=== PATIENT | male | born 1960 | race African-American/Black ===

== ENCOUNTER 2017-01-08 20:17 | Inpatient (IN) ==
[2017-01-08 21:14] LABS: BASO% 0.3 % (0.0-0.8); EOS# 0.05 X1000 (0.0-0.7); EOS% 0.7 % (0.0-10.0); HEMOGLOBIN 14.1 g/dL (14.0-18.0); IMM GRAN# 0.01 X1000 (0.0-0.04); IMM GRAN% 0.1 % (0.0-0.5); LYMPH# 0.58 X1000 (1.2-3.4); LYMPH% 8.6 % (20.5-51.1); MANUAL DIFF NEEDED? NO; MCH 31.1 PG (27-31); MCHC 37.1 g/dL (33-37); MCV 83.9 FL (81-99); MONO% 7.4 % (1.7-9.3); NEUT% 82.9 % (42.2-75.2); PLT 149 X1000 (130-400); RBC 4.53 XMIL (4.7-6.1)
[2017-01-08] MEDS ORDERED: ZOFRAN IV ONE (21:14)
[2017-01-08] MEDS ORDERED: M.V.I.-12 10 ML, FOLIC ACID 1 MG, MAGNESIUM SULFATE 1 GM, THIAMINE 100 MG in NS 1,000 ML IV ONE (21:14)
[2017-01-08 22:11] LABS: AGAP 21; ALBUMIN 4.8 g/dL (3.5-5.0); ALKALINE PHOSPHATASE 117 U/L (32-122); AMYLASE 72 U/L (20-200); BUN 6 mg/dL (8-22); CALCIUM 9.1 mg/dL (8.8-10.2); CHLORIDE 81 mmol/L (98-107); COSMO 241; GOT 290 U/L (10-34); GPT 124 U/L (10-44); LIPASE 146 U/L (13-60); POTASSIUM 3.9 mmol/L (3.5-5.1); SODIUM 121 mmol/L (136-145); TCO2 18 mmol/L (25-35); TOTAL PROTEIN 9.2 g/dL (6.3-8.3)
[2017-01-08] MEDS ORDERED: PROTONIX IV ONE (22:24)
[2017-01-08] MEDS ORDERED: SODIUM CHLORIDE 0.9% INJ ONE (22:24)
--- NOTE | 2017-01-08 23:42 | PROVIDER DOCUMENTATION ---
This chart was entered by Lavonne Bustamante Scribe, acting as scribe for Humza Ramos MD. HPI-Abdominal Pain/GI Problem - General Chief Complaint: Abdominal Pain Stated Complaint: abdominal pain Time Seen by Provider: 01/08/17 20:54 Source: patient Allergies/Adverse Reactions: Patient Allergies Allergy/AdvReac Type Severity Reaction Status Date / Time sucralfate [From Carafate] AdvReac NAUSEA/VOMI Verified 10/25/15 12:33 TING Home Medications: Home Medication List Medication Instructions Recorded Confirmed Last Taken Type Gabapentin [Neurontin] 100 mg PO BID 11/09/15 11/09/15 1 Day Ago History Multivit,Th Iron,Other Min 1 each PO DAILY 11/09/15 11/09/15 1 Day Ago History [Complete Multivitamin] Pantoprazole [Protonix] 40 mg PO DAILY@0700 11/09/15 11/09/15 1 Day Ago History Thiamine [Vitamin B-1] 100 mg PO DAILY 11/09/15 11/09/15 1 Day Ago History Chlordiazepoxide [Librium] 25 mg PO Q8H #6 capsule 11/10/15 Unknown Rx - History of Present Illness-ABD Nature of Presenting Problems: 56 year old M presents to the ED with a cc of nausea and vomiting with the feeling of "knotting up" in stomach with an onset of this morning. PT also c/o numbness in left hand and legs. Pt states that he has been drinking today to get rid of the nausea feeling but states that he drinks daily, 5-6 per day. Abdominal Pain Onset Location: reports: generalized abdomen Pain Radiation: reports: no radiation Quality of Pain: reports: cramping Severity in ED: reports: mild Onset/Duration: reports: this morning Timing: reports: still present Review of Systems - Adult - REVIEW OF SYSTEMS - ADULT Constitutional: denies: chills, fever Eyes: reports: no symptoms reported Ears, Nose, Mouth & Throat: reports: no symptoms reported Cardiovascular: denies: chest pain, palpitations Respiratory: denies: cough, shortness of breath Gastrointestinal: reports: abdominal pain, nausea, vomiting Genitourinary: reports: hesitency. denies: dysuria, hematuria Musculoskeletal: denies: bone pain, muscle aches, muscle weakness Integumentary: reports: no symptoms reported Neurological: reports: numbness. denies: dizziness/vertigo, headache/migraines Psychiatric: reports: no symptoms reported Endocrine: reports: no symptoms reported Hematologic/Lymphatic: reports: no symptoms reported Allergic/Immunologic: reports: no symptoms reported All Other Systems: Reviewed and Negative Past History - Adult - PAST MEDICAL HISTORY-ADULT Review of Records: reports: Nursing Assessment Review, Medications Reviewed Major Childhood Illnesses: reports: denies history Cardiovascular: reports: HTN Respiratory: reports: denies history Gastrointestinal: reports: denies history Obstetrical/Gynecological: reports: denies history Genitourinary: reports: denies history Musculoskeletal: reports: denies history Neurological: reports: CVA, Parkinson's, Seizures/Epilepsy Psychiatric: reports: anxiety Endocrine/Immune: reports: denies history Other Conditions: reports: denies history - PRIOR SURGERIES/PROCEDURES Surgical/Procedure History: reports: colonoscopy, cholecystectomy - PRIOR HOSPITALIZATIONS Prior Hospitalizations: reports: for other non-related - IMMUNIZATION STATUS Childhood Immunizations: See Nurse Assessment Flu Vaccine: See Nurse Assessment - FAMILY HISTORY Family History: reviewed, not pertinent - SOCIAL HISTORY Smoking: non-smoker Substance Use: none/never Alcohol Use Frequency: every day Living Situation: family Physical Exam-General - PHYSICAL EXAM-ADULT Initial Vital Signs Reviewed: Yes - CONSTITUTIONAL General Appearance: appears well, alert, no apparent distress - RESPIRATORY Respiratory: chest non-tender, lungs clear, normal breath sounds - CARDIOVASCULAR Cardiovascular: normal peripheral pulses, regular rate, rhythm, no edema - GASTROINTESTINAL (ABDOMEN) Abdominal Exam: normal bowel sounds, non tender, soft - MUSCULOSKELETAL Back Exam: normal inspection, no CVA tenderness, no vertebral tenderness Extremity: normal inspection - SKIN Integumentary: normal color, normal turgor, warm/dry - PSYCHIATRIC Psych/Mental Status: normal mood/affect, normal thought content, normal thought process, oriented x 3 Progress - PLAN OF CARE/RESULTS Progress/Plan/Lab Results: Vital Signs - 8 hr 01/08/17 20:19 Temperature 98.8 F Pulse Rate 90 Respiratory Rate 18 Blood Pressure 171/105 O2 Sat by Pulse Oximetry 98 Orders Category Date Time Status Saline Loc DIRECTED Care 01/08/17 20:54 Active NPO Diet 01/08/17 20:54 Active AMYLASE [CHEM] Stat Lab 01/08/17 21:00 Received CBC WITH ELECTRONIC DIFF [HEME] Stat Lab 01/08/17 21:00 Results COMPREHENSIVE METABOLIC PANEL [CHEM] Stat Lab 01/08/17 21:00 Received LIPASE [CHEM] Stat Lab 01/08/17 21:[address] W/POSS RFLX CULT [URINALYSIS] Stat Lab 01/08/17 21:09 Ordered Result Diagrams: 01/08/17 21:00 01/08/17 21:00 - CONSULTS/PCP/HOSPITALIST Notification #1 *Consult/PCP/Hospitalist*: Dr. Encarnacion(hospitalist) Time Discussed: 22:39 Reason/Comments: consult for admission Consult Disposition: Admit Departure - Departure Date of Disposition Decision: 01/08/17 Time of Disposition Decision: 23:41 DIAGNOSIS: ETOH abuse, Hyponatremia Pancreatitis Qualifiers: Chronicity: acute Pancreatitis type: alcohol induced Acute pancreatitis complication: no infection or necrosis Qualified Code(s): K85.20 - Alcohol induced acute pancreatitis without necrosis or infection Gastritis Qualifiers: Gastritis type: alcoholic Chronicity: acute Gastritis bleeding: without bleeding Qualified Code(s): K29.20 - Alcoholic gastritis without bleeding Disposition: ADMITTED INPATIENT 09 Certified Medical Emergency: Emergent Condition: Good - Critical Care Note This patient required my direct & personal management of CC.: No Attestation - Physician/ NITISH Attestation Patient care was provided by Advanced Practice Provider:: No The physician spent face to face time with patient:: Yes Advanced Practice Provider documentation review:: Supervising physician onsite and consulted in the evaluation and care of this patient. The physician did have a face to face encounter with the patient. This chart was documented by the indicated scribe, (Lavonne Bustamante Scribe) and accurately reflects the services I performed and decisions made by me, Humza Ramos MD, as attested by the provider's signature.
[2017-01-09] MEDS ORDERED: ZOFRAN IV ONE (03:04)
[2017-01-09 04:40] LABS: BILIRUBIN URINE NEGATIVE (NEGATIVE); BLOOD URINE 1+ (NEGATIVE); CLARITY CLEAR (CLEAR); COLOR YELLOW; GLUCOSE URINE NEGATIVE (NEGATIVE); LEUKOCYTES URINE NEGATIVE (NEGATIVE); NITRITE URINE NEGATIVE (NEGATIVE); PROTEIN URINE 1+(30 mg/dL) mg/dL (NEGATIVE); UROBILINOGEN URINE NORMAL
[2017-01-09 04:46] LABS: URINE CULTURE PL NEEDED? YES; URINE EPITHELIAL CELLS <10 /HPF (<10); URINE RBC <10 /HPF (<10); URINE SOURCE CLEAN CATCH; URINE WBC <10 /HPF (<10)
[2017-01-09] MEDS ORDERED: ATIVAN IM ONE (07:02)
[2017-01-09 09:51] LABS: MANUAL DIFF NEEDED? NO
[2017-01-09 09:59] LABS: BASO% 0.4 % (0.0-0.8); EOS# 0.11 X1000 (0.0-0.7); EOS% 2.1 % (0.0-10.0); HEMATOCRIT 36.5 % (42.0-52.0); LYMPH# 0.62 X1000 (1.2-3.4); LYMPH% 11.6 % (20.5-51.1); MCH 30.3 PG (27-31); MCHC 35.6 g/dL (33-37); MCV 85.1 FL (81-99); MONO# 0.47 X1000 (0.11-0.59); MONO% 8.8 % (1.7-9.3); MPV 8.6 FL (7.4-10.4); NEUT% 77.1 % (42.2-75.2); PLT 135 X1000 (130-400); RBC 4.29 XMIL (4.7-6.1)
[2017-01-09] MEDS: NS 1,000 ML IV SCH ×2 (10:07→19:38)
[2017-01-09] MEDS ORDERED: ZOFRAN IV PRN (10:15)
[2017-01-09 10:26] LABS: AGAP 15; ALBUMIN 4.6 g/dL (3.5-5.0); ALKALINE PHOSPHATASE 104 U/L (32-122); BUN 7 mg/dL (8-22); CALCIUM 9.2 mg/dL (8.8-10.2); CHLORIDE 88 mmol/L (98-107); COSMO 249; GOT 223 U/L (10-34); GPT 108 U/L (10-44); POTASSIUM 3.8 mmol/L (3.5-5.1); SODIUM 125 mmol/L (136-145); TCO2 22 mmol/L (25-35); TOTAL PROTEIN 8.5 g/dL (6.3-8.3)
--- NOTE | 2017-01-09 11:06 | HISTORY AND PHYSICAL ---
PRIMARY CARE PHYSICIAN: Dr. Bond. CHIEF COMPLAINT: Abdominal pain, nausea, vomiting and diarrhea that began yesterday. HISTORY OF PRESENTING ILLNESS: This is a 56-year-old, male, who presents to [facility] ER with complaints of generalized abdominal pain, nausea, vomiting, and diarrhea since yesterday. States that he drinks 5-6 beers every day and has a history of chronic ETOH abuse. On arrival, he had a sodium of 121, chloride of 81. Liver enzymes were elevated with a total bilirubin of 1.50. AST 290, ALT 124, lipase of 146. A blood pressure on arrival was 171/105. So he was admitted to the medical unit for further evaluation and treatment. PAST MEDICAL HISTORY: Chronic ETOH abuse. Peptic ulcer disease. Chronic pancreatitis, GERD and hypertension. PAST SURGICAL HISTORY: Cholecystectomy. FAMILY HISTORY: Noncontributory. SOCIAL HISTORY: Currently lives with family. Denies any tobacco use. Drinks 5 -6 beers daily and denies any illicit drugs. ALLERGIES: Sucralfate. HOME MEDICATIONS: Will need to be verified. At this time, he is n.p.o., but we will verify the dosages. LABORATORY DATA: White blood cell count of 6.72, hemoglobin 14.1, hematocrit 38 , platelets 149. Sodium of 121, potassium 3.9, chloride 81, CO2 of 18. BUN of 6, creatinine 0.7 , glucose 87, magnesium 1.7. Total bilirubin of 1.50. AST of 290, ALT 124, alkaline phosphatase of 117. Amylase of 72, lipase 146. Urinalysis was negative except for 3+ bacteria. Urine culture is pending. REVIEW OF SYSTEMS: He denied any fever, chills, blurred vision, dizziness, chest pain, coughing, shortness of breath. He is positive for generalized abdominal pain, nausea, vomiting and diarrhea. Denied any constipation, or burning or hurting with urination. PHYSICAL EXAMINATION: VITAL SIGNS: On arrival, he had a temperature of 98.8, a pulse of 90, respirations 18, blood pressure 171/105. Currently, his blood pressure is down to 157/81. GENERAL: This is a 56-year-old, male, who is lying in the bed , and answers questions appropriately. HEENT: Normocephalic and atraumatic. Pupils are equal, round, reactive to light. Extraocular movements are intact. The oropharynx and nares are clear. NECK: Supple. LUNGS: Clear to auscultation bilaterally with equal lung expansion and chest wall movement. HEART: With regular rate and rhythm. No murmurs, rubs, or gallops. ABDOMEN: Soft, nontender, nondistended. Bowel sounds are present x4 quadrants. EXTREMITIES: There is no clubbing, cyanosis, or edema. NEUROLOGICAL: The cranial nerves 2-12 are grossly intact. ASSESSMENT: 1. Mild pancreatitis. 2. Hyponatremia. 3. Elevated liver function tests. 4. Hypertension. 5. Ethanol abuse. PLAN: He has been admitted to the medical unit at [place]. Held n.p.o., placed on normal saline at 100 mL an hour. Will recheck a CBC and a CMP today. If his sodium is improved and his nausea, vomiting is improved, we will advance him to some clear liquids and see how he tolerates. We will give Zofran 4 mg IV q.4 hours p.r.n. Discussed ETOH cessation with this patient who verbalizes understanding. Dictated by SONI Carmona for Cody Encarnacion MD cc: SONI Carmona MD Dr. Thomas pt examined, seen face to face, has pancreatitis, mild tenderness in epigastrum on exam, pt has mild hyponatremia, likely due to beer potomonia, will hydrate and advance diet slowly, otherwise agree with above plan APENOT MTDD
[2017-01-09] MEDS: ATIVAN IV PRN (20:27)
[2017-01-10] MEDS: ATIVAN IV PRN (01:40)
[2017-01-10 04:58] VITALS: BP 171/91
[2017-01-10] MEDS: NS 1,000 ML IV SCH (05:11)
[2017-01-10 06:23] LABS: HEMATOCRIT 35.9 % (42.0-52.0); HEMOGLOBIN 12.6 g/dL (14.0-18.0); MCH 30.1 PG (27-31); MCHC 35.1 g/dL (33-37); MCV 85.9 FL (81-99); MPV 9.3 FL (7.4-10.4); RBC 4.18 XMIL (4.7-6.1)
[2017-01-10 06:37] LABS: AGAP 16; ALBUMIN 4.6 g/dL (3.5-5.0); ALKALINE PHOSPHATASE 103 U/L (32-122); BUN 7 mg/dL (8-22); CALCIUM 8.9 mg/dL (8.8-10.2); CHLORIDE 91 mmol/L (98-107); COSMO 256; GOT 209 U/L (10-34); GPT 101 U/L (10-44); POTASSIUM 3.2 mmol/L (3.5-5.1); SODIUM 129 mmol/L (136-145); TCO2 22 mmol/L (25-35); TOTAL PROTEIN 8.3 g/dL (6.3-8.3)
[2017-01-10] MEDS ORDERED: HALDOL IM PRN (07:03)
[2017-01-11 12:09] LABS: HEPATITIS PROFILE ACUTE SEE COMMENTS
--- NOTE | 2017-02-07 18:21 | DISCHARGE SUMMARY ---
ADMISSION DATE: 01/09/2017 DISCHARGE DATE: 01/09/2017 HOSPITAL COURSE: Briefly, this is a 56-year-old male who presented with abdominal pain, nausea, vomiting. He was admitted. Placed on IV fluids. [place] to have acute pancreatitis. ETOH cessation. I think the patient ended up leaving AMA. He did not want nursing care, and he wanted to leave the hospital. So he left the following day before being evaluated. The patient was still hyponatremic with a sodium 129, potassium 3.9, total bilirubin initially 1.5. It was 2.2 at discharge. Initial lipase 146. ASSESSMENT AND PLAN: Patient left against medical advice with not completing treatment. cc: MD Indra Jernigan MD
== END 2017-01-10 08:45 | disposition left against medical advice (07) ==
LOC: P.ED 20:17 → P.MEDSURG 22:44
PROVIDERS: ATTEND Internal Medicine

== ENCOUNTER 2017-01-10 22:43 | Inpatient (IN) ==
[2017-01-11] MEDS ORDERED: ATIVAN IM ONE (00:10)
[2017-01-11] MEDS ORDERED: ATIVAN ONE (00:11)
[2017-01-11 00:31] LABS: MANUAL DIFF NEEDED? NO
[2017-01-11 00:36] LABS: BASO% 0.3 % (0.0-0.8); EOS# 0.06 X1000 (0.0-0.7); EOS% 0.9 % (0.0-10.0); HEMATOCRIT 35.4 % (42.0-52.0); HEMOGLOBIN 12.8 g/dL (14.0-18.0); LYMPH# 0.54 X1000 (1.2-3.4); LYMPH% 8.1 % (20.5-51.1); MCH 31.4 PG (27-31); MCHC 36.2 g/dL (33-37); MCV 86.8 FL (81-99); MONO# 0.51 X1000 (0.11-0.59); MONO% 7.6 % (1.7-9.3); MPV 9.3 FL (7.4-10.4); NEUT% 83.1 % (42.2-75.2); PLT 153 X1000 (130-400); RBC 4.08 XMIL (4.7-6.1)
[2017-01-11 00:59] LABS: AGAP 23; ALBUMIN 4.6 g/dL (3.5-5.0); ALKALINE PHOSPHATASE 93 U/L (32-122); BUN 13 mg/dL (8-22); CALCIUM 9.4 mg/dL (8.8-10.2); CHLORIDE 91 mmol/L (98-107); COSMO 267; GOT 234 U/L (10-34); GPT 117 U/L (10-44); POTASSIUM 3.7 mmol/L (3.5-5.1); SODIUM 134 mmol/L (136-145); TCO2 20 mmol/L (25-35); TOTAL BILIRUBIN 2.24 mg/dL (0.20-1.00); TOTAL PROTEIN 8.7 g/dL (6.3-8.3)
[2017-01-11 01:06] LABS: FREE T4 1.58 ng/dL (0.93-1.70)
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
[2017-01-11] MEDS ORDERED: M.V.I.-12 10 ML, FOLIC ACID 1 MG, MAGNESIUM SULFATE 1 GM, THIAMINE 100 MG in NS 1,000 ML IV ONE (02:09)
[2017-01-11] MEDS ORDERED: ATIVAN IV PRN ×2 (02:09→08:40)
[2017-01-11] MEDS ORDERED: ZOFRAN IV PRN (04:26)
[2017-01-11] MEDS ORDERED: STERILE WATER INJ. INJ ONE (04:51)
[2017-01-11] MEDS ORDERED: GEODON IM ONE (04:51)
[2017-01-11] MEDS: NS 1,000 ML IV SCH ×2 (05:50→14:26)
[2017-01-11 06:27] LABS: URINE CULTURE NEEDED? NO; URINE MICRO REVIEW NEEDED? NO; URINE SOURCE CATH
[2017-01-11 06:35] LABS: BILIRUBIN URINE SMALL (NEGATIVE); BLOOD URINE TRACE (NEGATIVE); COLOR ORANGE; GLUCOSE URINE NEGATIVE (NEGATIVE); LEUKOCYTES URINE NEGATIVE (NEGATIVE); NITRITE URINE NEGATIVE (NEGATIVE); PROTEIN URINE 200 mg/dL (NEGATIVE); SP GRAVITY URINE 1.022; TURBIDITY URINE CLEAR (CLEAR); UROBILINOGEN URINE 6 mg/dL (NORMAL)
[2017-01-11 06:36] LABS: UR EPITHELIAL CELLS <10 /HPF (<10); URINE BACTERIA NEGATIVE /HPF; URINE WBC <10 /HPF (<10)
[2017-01-11 06:47] LABS: UR AMPHETAMINES QUAL NONE DETECTED (NONE DETECT); UR BARBITUATES QUAL NONE DETECTED (NONE DETECT); UR BENZODIAZEPIN QUAL NONE DETECTED (NONE DETECT); UR CANNABINOIDS QUAL NONE DETECTED (NONE DETECT); UR COCAINE QUAL NONE DETECTED (NONE DETECT); UR METHADONE QUAL NONE DETECTED (NONE DETECT); UR OPIATES QUAL NONE DETECTED (NONE DETECT); UR OXYCODONE QUAL NONE DETECTED (NONE DETECT); UR PCP QUAL NONE DETECTED (NONE DETECT)
--- NOTE | 2017-01-11 06:47 | HISTORY AND PHYSICAL ---
PRIMARY CARE PHYSICIAN: Unknown. CHIEF COMPLAINT: Alcohol withdrawal. HISTORY OF PRESENTING ILLNESS: A 56-year-old male with a history of CVA, hypertension, seizures and alcohol abuse had presented to our emergency department due to altered mental status. He was somewhat agitated and really not much history could be obtained from him. His toxicology screen showed that his alcohol level was 0 and was suspected that he was having withdrawal symptoms. He was evaluated in the ER, and due to his severe agitation it was thought that he would need admission for further management. At the time of my examination, he had denied any headache, fever, chills, or chest pain. He was not really cooperative with much of history gathering or exam. PAST MEDICAL HISTORY: Includes CVA, hypertension and seizures. PAST SURGICAL HISTORY: Cholecystectomy. ALLERGIES: No known drug allergies. CURRENT MEDICATIONS: As per medication reconciliation sheet. SOCIAL HISTORY: Denies any history of smoking. History of drinking beer mostly. Denies any history of illicit drug use. FAMILY HISTORY: No history of coronary disease. REVIEW OF SYSTEMS: Limited due to his altered mental status. PHYSICAL EXAMINATION: GENERAL: Mildly confused and agitated male. He is without any respiratory distress. VITAL SIGNS: Temperature 99.6 degrees, pulse 105, respirations 14 and blood pressure 156/94. HEENT: Atraumatic, normocephalic. PERRLA. NECK: No masses. CHEST: Clear to auscultation. CARDIOVASCULAR: Regular rate and rhythm. ABDOMEN: Soft. Positive bowel sounds. EXTREMITIES: No edema. NEUROLOGIC: He is awake and agitated. : No bladder distention. SKIN: Warm. LABORATORIES AND STUDIES: WBC 6.70, hemoglobin 12.8, hematocrit 35.4 and platelets 153,000. Sodium 134, potassium 3.7, chloride 91, CO2 20. BUN is 13, creatinine is 1.2, glucose is 73. AST 234, ALT 117 and bilirubin 0.24. ASSESSMENT: A 56-year-old male with a history of alcohol abuse, hypertension, seizures and CVA who had presented to the emergency department due to mental status changes. It was suspected that he was having alcohol withdrawal symptoms. Subsequently, he will need admission for further management. 1. Alcohol withdrawal symptoms. 2. Suspected alcoholic hepatitis. 3. Abnormal liver function tests. 4. Hypertension. PLAN: 1. We will admit patient to ICU. 2. We will continue with supportive treatment, IV fluids and antiemetics. 3. Place patient on Ativan p.r.n. agitation and withdrawal. 4. Put patient on seizure precautions. 5. We will check an abdominal ultrasound. 6. We will monitor blood pressure closely. Resume antihypertensive agent. 7. Put patient on DVT prophylaxis and SCD. 8. We will continue to follow and reassess. cc: Lavon Leonard MD
[2017-01-11] MEDS ORDERED: THIAMINE 100 MG in NS 50 ML IV SCH (09:00)
[2017-01-11] MEDS ORDERED: LIBRIUM PO SCH (10:45)
[2017-01-11 20:29] VITALS: BP 167/84
--- NOTE | 2017-01-12 17:36 | DISCHARGE SUMMARY ---
ADMISSION DATE: 01/11/2017 DISCHARGE DATE: 01/11/2017 ADMISSION DIAGNOSES: 1. Alcohol withdrawal symptoms. 2. Suspected alcoholic hepatitis. 3. Abnormal liver function tests. 4. Hypertension. DISCHARGE DIAGNOSES: 1. Alcohol withdrawal symptoms. 2. Alcoholic hepatitis. 3. Abnormal liver function tests. 4. Hypertension. 5. Left against medical advice. HOSPITAL COURSE: Mr. Giovanny Walden is a 56-year-old male with a history of CVA, hypertension, seizures, alcohol abuse, who presented to the ER with altered mental status. He was agitated and was a poor historian. His toxicology screening showed his alcohol level was zero and he was suspected to be having withdrawal symptoms. He was evaluated in the ER. Due to the severe agitation, it was thought that he would need to be admitted for further DT management. At the time of Dr. Leonard' examination, the patient denied any headache, fever, chills, or chest pain but otherwise was uncooperative with history gathering. Throughout the day Mr. Walden threatened leaving all day long, attempted to get his son to take him home, attempted to get his to take him home. Apparently he states that he is not ambulatory, that he has been using a wheelchair to get around. I believe eventually around 10:30 at night last night, on 2016, his decided to take him home against medical advice. PHYSICAL EXAMINATION: Discharge vital signs: Temperature 98.3, heart rate 97, respiratory rate 20, blood pressure 167/84, O2 saturation 99%. DISCHARGE ACTIVITY: As tolerated. DISCHARGE DIET: Regular. DISCHARGE MEDICATIONS: Discharge medications were unable to be reconciled as the patient was uncooperative. DISCHARGE DISPOSITION: The patient left AMA with his to go home on 2016 at around 8:42 p.m. Dictated by SONI Mendez for Darci Becker MD I personally evaluated this patient face to face, images, vitals signs and lab work were reviewed, this patient was completely alert and oriented X3, he has severe weakness, he actually can not even walk by himself, but he is refusing treatment and wants to go home, he is leaving AMA Darci Rodriges MD cc: SONI Mendez MD [facility]
== END 2017-01-11 20:47 | disposition left against medical advice (07) ==
LOC: ED 22:43 → EDIPHOLD 01-11 03:29 → SUATTDRO 01-11 03:29 → EDIPHOLD 01-11 20:35
PROVIDERS: ATTEND Internal Medicine